=== PATIENT | female | born 1960 | race Two or more races ===

== ENCOUNTER 2017-05-19 22:21 | Emergency (ER) | payer SELFPAY ==
[~2017-05-19] VITALS: Ht 160 cm; Wt 87.2 kg
[2017-05-19] MEDS ORDERED: ASPIRIN 81 MG TABLET CHEW ONE (22:58)
[2017-05-19] MEDS ORDERED: ASPIRIN 81 MG TABLET CHEW PO ONE (23:00)
[2017-05-19 23:16] LABS: BLOOD UREA NITROGEN 16 mg/dL (7-18)
[2017-05-19 23:20] LABS: IS PT STATUS REG ER OR PRE ER? YES
[2017-05-20 00:09] VITALS: BP 122/82
== END 2017-05-20 00:11 | disposition home or self-care (01) ==
LOC: ED 23:57
DX: R07.89 Other chest pain (principal)
CPT/HCPCS: 36415; 71010; 80048; 82040; 84484; 85025; 93005; 99285